=== PATIENT | female | born 1950 | race Caucasian/White ===

== ENCOUNTER 2019-07-17 12:58 | Emergency (ER) | payer BC ==
--- OUTSIDE RECORDS SUMMARY | 2019-07-17 13:16 | XMS REPORT | Continuity of Care Document ---
:1950 Author Organization [address] [place] [address] [address] Phone Care Team Providers Name Role Phone ELIZABETH MEJIA Unavailable Unavailable Allergies, Adverse Reactions, Alerts Substance Reaction Status lisinopril Altered Heart Rate (severe) Active morphine N/V Active VENLAFAXINE HCL "tachycardia" Active doxorubicin "cardiomyopathy" (mild to moderate) Active WARNIN allergy(ies) could not be collected because the type is not supported. Please contact [facility] for further details. Medications Medication Instructions Dosage Effective Dates Status Comments (start - stop) amlodipine 5 mg take 1 tablet by oral 5 MG - Active tablet route every day Problems Condition Effective Dates (start - stop) Clinical Status Unknown Procedures Procedure Date Procedure Unknown Results Test Name Date and Time Measure Units Reference Range Abnormal Flag Status Comments Unknown Encounters Encounter Practice Location Reason(s) Diagnoses Date Provider Providers Description For Visit Copied on Encounter 2018 [facility] [employer], Primary [place]. [address] [address]. [place], [place], tel:[phone] tel:[phone] [place] [address] [employer] [employer], Primary [place]. [address], [place] [address]. [place], [place], tel:[phone], [place] [address] tel:[phone] - [facility] Primary -2018 [facility]. [address], [place], [place] [address]. [place], tel:[phone], [place] [phone] tel:[phone] - [facility] [employer], Primary -2018 [place]. [address], [place] [address]. [place], [place], tel:[phone] tel:[phone] - [facility] [employer], Primary -2017 [place]. [address], [place], [place] [address]. [place], tel:[phone] tel:[phone] - [facility], Primary -2016 [place]. [address] [facility], [place], [place], [place], [address]. [address], [place] tel:[phone] tel:[phone] - [facility], Primary -2014 [facility]. [address] [facility], [place], [place], [place], [address]. [address], [place] tel:[phone] tel:[phone] - [facility], Primary -2014 [place]. [address] [facility], [place], [place], [place], [address]. [address], [place] tel:[phone] tel:[phone] - [facility], Primary -2011 [place]. [address] [facility], [place], [place], [place], [address]. [address], tel:[phone] tel:[phone] Family History Family Member Diagnosis Age At Onset Sister Cancer, breast 29 Maternal grandmother ? Glaucoma Mother Family history of Cancer, breast Paternal aunt Cancer, liver PGGM Cancer Cousin Cancer, breast Family history of Cancer, colon Paternal grandmother Myocardial infarction Paternal grandfather Myocardial infarction paternal great grand Suicide (Cause Of ) Family history of Myocardial infarction paternal great grand Son Schizophrenia Mother Myocardial infarction (Cause Of ) Cousin Cancer, breast Father "Undifferentiated galloping CA Cousin Cancer, breast Daughter Alcoholism Paternal uncle Myocardial infarction Family history of Coronary artery disease paternal great grand Immunizations Vaccine Date Status Comments Shingrix administered Source: New Immunization Record Shingrix administered Note: [facility] [id number] ; Source: New Immunization Record Influenza, injectable, administered Source: Other Provider quadrivalent, preservative free, split virus [id number] TDAP (Boostrix or Adacel) administered Source: New Immunization Record Pneumo (2 yrs and older) administered Source: Other Provider (PPV23) Fluarix, Flulaval, or Flluzone administered Source: Other Provider Quad Pneumococcal conjugate PCV 13 administered Source: Other Provider flu (split) (3 yrs or older) administered Note: Abstracted:08/14 ; preservative free Source: New Immunization Record flu (split) (3 yrs or older) administered Note: Abstracted:07/15 ; Source: New Immunization Record Zoster administered Note: Abstracted:07/15/2012 ; Source: New Immunization Record flu (split) (3 yrs or older) administered Note: Abstracted:07/15 ; Source: New Immunization Record "adult DTP" administered Note: Abstracted:07/15/2012 ; Source: New Immunization Record Payers Payer name Insurance type Covered republican ID Authorization(s) [place] [id number] Medicare Mc [id number] Medicare A [id number] [facility] [id number] Medicare B [id number] [facility] He [id number] Medicare A [id number] Medicare B [id number] [facility] Care He [id number] Social History Type Description Quantity Date Captured Comments Alcohol Use Details Unknown Caffeine Use Details Unknown Tobacco Use Status Unknown Smoking Status Unknown Vital Signs Date / Height Weight BMI Pulse Blood Temperature Respiratory Body Head BMI Time: Rate Pressure Rate Surface Circumference percentile Area Unknown Chief Complaint And Reason For Visit No information Reason For Referral Reason For Referral Unknown Plan Of Care Date Type Action Status Unknown Date Type Problem Goal Intervention Status Start Date Unknown History Of Present Illness Encounter Date Complaint History Of Present Illness No information Functional Status Encounter Date Functional Assessment Cognitive Assessment Unknown Medications Administered Medication Instructions Dosage Effective Dates (start - stop) Status Comments Drug Treatment Unknown Instructions Date Instruction Additional Information Unknown
--- NOTE | 2019-07-17 17:04 | ED ---
Neurological HPI - HPI Summary HPI Summary: 69 year old female presents with numbness and tingling to right arm today. She has chronic numbness in right pinky for the past couple months. today the whole arm from the elbow down became numb and she states she had some muscle spasm like pain in the arm. She states that she is still able to use the hand though. Chronic numbness started in october which occurred after chemo treatment in October. Denies any headache. No difficulties with speech. No weakness. She states that her symptoms resolve in certain positions. She denies any chest pain or shortness of breath. She has a history of breast cancer. She sees dr bueno. - History of Current Complaint Chief Complaint: EDNeurologicalDeficit Stated Complaint: ARM NUMBESS Time Seen by Provider: 07/17/19 16:37 Pain Intensity: 0 - Additional Pertinent History Primary Care Physician: KEMI - Allergy/Home Medications Allergies/Adverse Reactions: Allergies Allergy/AdvReac Type Severity Reaction Status Date / Time doxorubicin Allergy See Comment Verified 04/22/19 10:48 venlafaxine Allergy Tachycardia Verified 04/22/19 10:48 amoxicillin AdvReac Mild Nausea Verified 04/22/19 10:48 morphine AdvReac Nausea And Verified 04/22/19 10:48 Vomiting Home Medications: Home Medications Acetaminophen [Acetaminophen Extra Strength] 1,000 mg PO Q6HR PRN 07/17/19 [ History Confirmed 07/17/19] Calcium Carbonate/Vitamin D3 [Calcium 600-Vit D3 800 Caplet] 1 tab PO DAILY 09/04 [History Confirmed 07/17/19] Docusate CAP* [Colace Cap*] 100 mg PO BID 07/17/19 [History Confirmed 07/17/19] Metronidazole (TOPICAL)(NF) [Metrocream (NF)] 1 applic TOPICAL BID 07/17/19 [ History Confirmed 07/17/19] Olaparib [Lynparza] 300 mg PO BID 07/17/19 [History Confirmed 07/17/19] amLODIPine TAB* [Norvasc 5 mg TAB*] 5 mg PO DAILY 07/17/19 [History Confirmed ] PMH/Surg Hx/FS Hx/Imm Hx Endocrine/Hematology History: Reports: Hx Thyroid Disease - HX OF AFTER CHEMO- STATES HAS RETURNED TO NORMAL NOW, Hx Anemia - HX OF-CURRENTLY ON IRON Denies: Hx Anticoagulant Therapy, Hx Diabetes Cardiovascular History: Denies: Hx Congestive Heart Failure, Hx Hypertension GI History: Reports: Hx Gastroesophageal Reflux Disease - PRN PEPCID History: Reports: Hx Kidney Infection - 45 YEARS AGO Denies: Hx Renal Disease Musculoskeletal History: Reports: Hx Arthritis - AT TIMES-;LOWER BACK, Hx Bursitis - LEFT ARM, Other Musculoskeletal History - arthritis Sensory History: Denies: Hx Contacts or Glasses, Hx Hearing Aid Opthamlomology History: Denies: Hx Contacts or Glasses Neurological History: Reports: Hx Headaches Denies: Other Neuro Impairments/Disorders - DJD Psychiatric History: Reports: Hx Anxiety - SEASONAL AFFECTIVE DISORDER- [facility] - Cancer History Cancer Type, Location and Year: breast, ovarian ca Hx Chemotherapy: Yes Hx Radiation Therapy: Yes - Surgical History Surgery Procedure, Year, and Place: left breast mastectomy,hysterectomy ovarian ca Hx Anesthesia Reactions: Yes - NAUSEA/VOMITING - Immunization History Date of Influenza Vaccine: 04/2019 Infectious Disease History: No Infectious Disease History: Denies: Traveled Outside the [place] in Last 30 Days - Family History Known Family History: Positive: Cardiac Disease, Other - suicide, breast/liver cancer, AR's - Social History Alcohol Use: None Substance Use Type: Reports: None Smoking Status (MU): Never Smoked Tobacco Review of Systems Negative: Fever Negative: Chest Pain Negative: Shortness Of Breath Positive: Paresthesia All Other Systems Reviewed And Are Negative: Yes Physical Exam Triage Information Reviewed: Yes Vital Signs On Initial Exam: Initial Vitals Temp Pulse Resp BP Pulse Ox 98.1 F 73 16 151/94 100 07/17/19 13:01 07/17/19 13:01 07/17/19 13:01 07/17/19 13:01 07/17/19 13:01 Vital Signs Reviewed: Yes Appearance: Positive: Well-Appearing Skin: Positive: Warm, Dry Head/Face: Positive: Normal Head/Face Inspection Eyes: Positive: Normal, EOMI, ALEJANDRA, Conjunctiva Clear ENT: Positive: Pharynx normal Respiratory/Lung Sounds: Positive: Clear to Auscultation, Breath Sounds Present Cardiovascular: Positive: Normal, RRR Musculoskeletal: Positive: Strength/ROM Intact - right hand and arm, Other - good pulses, 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 Negative: Pronator Drift Present Psychiatric: Positive: Normal - Nancy Coma Scale Best Eye Response: 4 - Spontaneous Best Motor Response: 6 - Obeys Commands Best Verbal Response: 5 - Oriented Coma Scale Total: 15 Procedures - Sedation Patient Received Moderate/Deep Sedation with Procedure: No Diagnostics - Vital Signs Vital Signs Temp Pulse Resp BP Pulse Ox 07/17/19 15:06 98.3 F 69 16 138/85 100 07/17/19 13:01 98.1 F 73 16 151/94 100 - Laboratory Result Diagrams: 07/17/19 17:14 07/17/19 17:14 Lab Statement: Any lab studies that have been ordered have been reviewed, and results considered in the medical decision making process. - Radiology brain Radiology Interpretation Completed By: Radiologist Summary of Radiographic Findings: IMPRESSION: THERE ARE SEVERAL LESIONS WITHIN THE CEREBRUM AND CEREBELLUM SUSPICIOUS FOR METASTATIC DISEASE. THESE ARE ASSOCIATED WITH SLIGHT INCREASED DENSITY WHICH MAY REPRESENT DENSE CELLULARITY ALTHOUGH HEMORRHAGE CANNOT BE EXCLUDED. NO MIDLINE SHIFT IS PRESENT. RECOMMEND AN MRI OF THE BRAIN WITHOUT AND WITH CONTRAST. - CT mri CT Interpretation Completed By: Radiologist Summary of CT Findings: IMPRESSION: Enhancing right frontal, left parietal and right cerebellar masses compatible with intracranial metastatic disease. - EKG No standard instances Cardiac Rate: NL EKG Rhythm: Sinus Rhythm EKG Comparison: No Significant Change Summary of EKG Findings: sinus rhythm NIH Scale - NIH Scale Level of Consciousness: Alert/Keenly Responsive Ask Patient the Month and His/Her Age: Both Correct Ask Pt to Open/Close Eyes and [employer] Estimator/Release Non-Paretic Hand: Both Correctly Best Gaze (Only Horizontal Eye Movement): Normal Visual Field Testing: No Visual Loss Facial Paresis-Pt to Smile & Close Eyes or Grimace Symmetry: Normal/Symmetrical Motor Function - Right Arm: No Drift-Holds 10 Seconds Motor Function - Left Arm: No Drift-Holds 10 Seconds Motor Function - Right Leg: No Drift-Holds 10 Seconds Motor Function - Left Leg: No Drift-Holds 10 Seconds Limb Ataxia-Must be out of Proportion to Weakness Present: Absent Sensory (Use Pinprick to Test Arms/Legs/Trunk/Face): Normal Best Language (Describe Picture, Name Items): No Aphasia Dysarthria (Read Several Words): Normal Extinction and Inattention: No Abnormality Total Score: 0 Re-Evaluation - Re-Evaluation First Eval Re-Evaluation Time: 18:40 Comment: discussed need for mri Second Eval Re-Evaluation Time: 20:56 Comment: tolerated mri Course/Dx - Course Course Of Treatment: 69 year old female presents with sudden onset of new numbness and tingling in right arm from elbow down. no weakness. has chronic numbness in right pinky. no difficulties speech. no other neuro symptoms. has history of breast CA. on exam has normal neuro exam. no neuro deficit noted on exam. 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 nontender over elbow. CT brain shows potential metastic disease and mr is recommended. patient required ativan for mri. MRI shows metastic disease with no bleed. no CVA. will discharge to have follow up with onocology. also gave referral to ortho as may still be peripheral problem as feels better with postitional changes. patient understand and agrees with plan. - Differential Dx Differential Diagnoses Neuro: Positive: Metastatic Disease, Transient Ischemic Attack, Other - carpel tunnel - Diagnoses Provider Diagnoses: Paresthesia and pain of right extremity, Metastatic disease Discharge ED - Sign-Out/Discharge Documenting (check all that apply): Patient Departure - Discharge Plan Condition: Good Disposition: HOME Patient Education Materials: Paresthesia (ED) Referrals: Jerome Bueno MD [Primary Care Provider] - Gala Bull MD [Medical Doctor] - Additional Instructions: follow up with oncology a referral was given for ortho Return to ED if develop any new or worsening symptoms - Billing Disposition and Condition Condition: GOOD Disposition: Home
[2019-07-17 17:10] LABS: Urine Appearance Clear; Urine Bilirubin Negative (Negative); Urine Blood Negative (Negative); Urine Color Straw; Urine Glucose Negative (Negative); Urine Ketones Negative (Negative); Urine Nitrite Negative (Negative); Urine Protein Negative (Negative); Urine Specific Gravity 1.002 (1.010-1.030); Urine Urobilinogen Negative (Negative)
[2019-07-17 17:28] LABS: ABS Lymphocytes 0.8 10^3/ul (1.0-4.8); ABS Monocytes 0.3 10^3/ul (0-0.8); ABS Neutrophils 2.9 10^3/ul (1.5-7.7); Eosinophil % 0.7 %; Hematocrit 35 % (35-47); Hemoglobin 12.7 g/dL (12.0-16.0); Lymphocyte % 20.3 %; Mean Corpuscular HGB Conc 37 g/dL (31-36); Mean Corpuscular Hemoglobin 38 pg (27-31); Mean Corpuscular Volume 104 fL (80-97); Mean Platelet Volume 7.5 fL (7.4-10.4); Nucleated Red Blood Cells % 0.2; Platelet Count 230 10^3/uL (150-450); Red Blood Count 3.35 10^6 /uL (3.70-4.87); Red Cell Distribution Width 15 % (10-15); White Blood Count 4.2 10^3/uL (3.5-10.8)
[2019-07-17 17:32] LABS: INR 0.94 (0.82-1.09)
[2019-07-17 17:45] LABS: Albumin 4.5 g/dL (3.2-5.2); Albumin/Globulin Ratio 1.5 (1-3); BUN/Creatinine Ratio 13.9 (8-20); Calcium 9.5 mg/dL (8.6-10.3); EGFR African American 96.9 (>60); EGFR Non-African American 80.1 (>60); Globulin 3.1 g/dL (2-4); Potassium 3.5 mmol/L (3.5-5.0); Total Bilirubin 0.7 mg/dL (0.2-1.0); Total Protein 7.6 g/dL (6.4-8.9)
[2019-07-17] MEDS ORDERED: Lorazepam PYXIS KEY PRN (18:29)
[2019-07-17] MEDS ORDERED: Lorazepam PYXIS KEY ONE (19:02)
[2019-07-17] MEDS: LORazepam INJ* 2 MG/ML 1 ML VIAL IV PUSH ONE (19:11)
[2019-07-17] MEDS: Gadoteridol* (CONTRAST) 279.3 MG/ML 10 ML IV ONE (19:53)
[2019-07-17 21:54] VITALS: BP 142/74
== END 2019-07-17 21:50 | disposition home or self-care (01) ==
LOC: ED 12:58
DX: R20.0 Anesthesia of skin (principal); C50.919 Malignant neoplasm of unspecified site of unspecified female breast; C56.9 Malignant neoplasm of unspecified ovary; C79.9 Secondary malignant neoplasm of unspecified site; K21.9 Gastro-esophageal reflux disease without esophagitis; F41.9 Anxiety disorder, unspecified; Z90.12 Acquired absence of left breast and nipple; Z90.710 Acquired absence of both cervix and uterus; Z79.899 Other long term (current) drug therapy; Z88.0 Allergy status to penicillin; Z88.1 Allergy status to other antibiotic agents; Z88.5 Allergy status to narcotic agent
CPT/HCPCS: 36415; 70450; 70553; 80053; 81003; 83605; 84484; 85025; 85610; 93005; 96374; 96375; 99283; A9579; J1642; J2060

== ENCOUNTER 2022-03-24 15:24 | Inpatient (IN) ==
[2022-03-24] MEDS ORDERED: Ondansetron 4 mg VIAL 2 MG/ML 2 ml VIAL IV ONE (16:28)
[2022-03-24] MEDS ORDERED: Lactated Ringers 1000 ml BAG 1,000 ML IV ONE (16:28)
[2022-03-24 17:49] LABS: ABS Lymphocytes 0.7 10^3/ul (1.0-4.8); ABS Monocytes 0.8 10^3/ul (0-0.8); ABS Neutrophils 4.3 10^3/ul (1.5-7.7); Eosinophil % 0.2 %; Hematocrit 39 % (35-47); Hemoglobin 13.4 g/dL (12.0-16.0); Lymphocyte % 11.5 %; Mean Corpuscular HGB Conc 34 g/dL (31-36); Mean Corpuscular Hemoglobin 32 pg (27-31); Mean Corpuscular Volume 95 fL (80-97); Mean Platelet Volume 6.9 fL (7.4-10.4); Platelet Count 338 10^3/uL (150-450); Red Blood Count 4.15 10^6 /uL (3.70-4.87); Red Cell Distribution Width 14 % (10-15); White Blood Count 5.8 10^3/uL (3.5-10.8)
[2022-03-24 18:26] LABS: Albumin 3.4 g/dL (3.2-5.2); Albumin/Globulin Ratio 1.2 (1-3); Globulin 2.9 g/dL (2-4); Potassium 3.7 mmol/L (3.5-5.0); Total Bilirubin 1.4 mg/dL (0.2-1.0); Total Protein 6.3 g/dL (6.4-8.9); eGFR CKD-EPI 49.3 (>60)
[2022-03-24 20:01] LABS: Urine Appearance Clear; Urine Bilirubin 1+ (Small) (Negative); Urine Color Yellow; Urine Glucose Negative (Negative)
[2022-03-24 20:02] LABS: Urine Blood Trace (Lysed) (Negative); Urine Ketones Trace (Negative); Urine Nitrite Negative (Negative); Urine Protein Negative (Negative); Urine Specific Gravity 1.015 (1.005-1.030); Urine Urobilinogen 1.0 (Negative) (Negative)
[2022-03-24 20:26] LABS: Urine Bacteria Absent (Absent); Urine Red Blood Cell Trace(0-2/hpf) (Absent); Urine Squamous Epithelial Cell Present (Absent); Urine White Blood Cell 2+(11-20/hpf) (Absent)
[2022-03-25] MEDS ORDERED: Polyethylene Glycol 3350 17 GM PACKET PO PRN (03:07)
[2022-03-25] MEDS ORDERED: Lactated Ringers 1000 ml BAG 1,000 ML IV SCH (06:00)
[2022-03-25] MEDS: Heparin 5000 UNITS/ML 1 mL VIAL SUBCUT SCH ×2 (08:28→08:33)
[2022-03-25 09:11] LABS: Urine Creatinine Concentration 100.62 mg/dL; Urine Sodium Concentration < 18 mmol/L
[2022-03-25] MEDS: Ondansetron 4 mg VIAL 2 MG/ML 2 ml VIAL IV PRN ×2 (09:53→21:34)
[2022-03-25] MEDS ORDERED: D5LR 1000 ml BAG 1,000 ML IV SCH ×2 (15:00→18:24)
[2022-03-25] MEDS ORDERED: Enoxaparin 40 MG/0.4 ML SYR SUBCUT SCH (20:00)
[2022-03-25 20:19] LABS: Calcium 8.5 mg/dL (8.6-10.3); Potassium 3.4 mmol/L (3.5-5.0); eGFR CKD-EPI 63.3 (>60)
[2022-03-26 06:25] LABS: Calcium 8.7 mg/dL (8.6-10.3); Magnesium 1.7 mg/dL (1.9-2.7); Potassium 3.7 mmol/L (3.5-5.0); eGFR CKD-EPI 64.9 (>60)
[2022-03-26] MEDS ORDERED: Sodium Phosphate ADULT ENEMA 133 ML BTL PR ONE (08:33)
[2022-03-26] MEDS ORDERED: ACETAMINOPHEN IV PRN (09:04)
[2022-03-26] MEDS ORDERED: Magnesium Sulfate 2 gm BAG 2 GM/50 ML BAG IVPB ONE (09:13)
[2022-03-26] MEDS: Pantoprazole VIAL 40 MG VIAL IV SCH (10:13)
[2022-03-26] MEDS: Furosemide 20 mg/2 ml IV VIAL IV SCH ×2 (10:13→22:15)
[2022-03-26] MEDS: Enoxaparin 40 MG/0.4 ML SYR SUBCUT SCH (10:23)
[2022-03-26] MEDS ORDERED: NS 0.9% 500 ml BAG 500 ML IV ONE (10:41)
[2022-03-26] MEDS: KCL 20 MEQ/100 ML IVPREMIX 20 MEQ/100 ML BAG IV SCH ×2 (12:05→14:56)
[2022-03-26] MEDS ORDERED: Lidocaine 1% VIAL 10 MG/ML VIAL 30 ML ONE (13:43)
[2022-03-26 17:03] LABS: Body Fluid WBC 665 /mcL
[2022-03-26 17:14] LABS: Body Fluid Mono 32 %; Body Fluid Other Cells 42; Body Fluid Total Cells Counted 200
[2022-03-26 17:16] LABS: Body Fluid Appearance Cloudy; Body Fluid Color Amber; Body Fluid Source Peritonial Fluid
[2022-03-27 04:58] LABS: Calcium 8.6 mg/dL (8.6-10.3); Magnesium 2.1 mg/dL (1.9-2.7); Phosphorus 3.1 mg/dL (2.5-5.0); Potassium 4.4 mmol/L (3.5-5.0); eGFR CKD-EPI 56.8 (>60)
[2022-03-27] MEDS: Furosemide 20 mg/2 ml IV VIAL IV SCH ×2 (08:33→23:07)
[2022-03-27] MEDS: Pantoprazole VIAL 40 MG VIAL IV SCH (08:33)
[2022-03-27] MEDS: Enoxaparin 40 MG/0.4 ML SYR SUBCUT SCH (08:34)
[2022-03-27] MEDS ORDERED: Sodium Phosphate ADULT ENEMA 133 ML BTL PR ONE (12:07)
[2022-03-27] MEDS: Ondansetron 4 mg VIAL 2 MG/ML 2 ml VIAL IV PRN ×2 (18:18→22:59)
[2022-03-28] MEDS: Pantoprazole VIAL 40 MG VIAL IV SCH (10:14)
[2022-03-28] MEDS: Furosemide 20 mg/2 ml IV VIAL IV SCH ×2 (10:14→20:47)
[2022-03-28] MEDS: Enoxaparin 40 MG/0.4 ML SYR SUBCUT SCH (10:14)
[2022-03-28 12:07] LABS: Albumin, BF 2.2 g/dL; Total Protein, BF 3.8 g/dL
[2022-03-28 15:00] LABS: INR 1.07 (0.89-1.11)
[2022-03-29] MEDS: Pantoprazole VIAL 40 MG VIAL IV SCH (08:44)
[2022-03-29] MEDS: Furosemide 20 mg/2 ml IV VIAL IV SCH (08:44)
[2022-03-29 12:13] VITALS: BP 92/59
[2022-03-29] MEDS: Ondansetron 4 mg VIAL 2 MG/ML 2 ml VIAL IV PRN (20:00)
== END 2022-03-29 20:10 | disposition home or self-care (01) | DRG 247 ==
LOC: EDHOLD 15:24 → ED 15:24 → SUATTDRO 03-25 03:02 → MEDTELE 03-25 04:18 → SUATTDRO 03-28 17:00
PROVIDERS: ADMIT Internal Medicine; ATTEND Internal Medicine